=== PATIENT | male | born 1995 | race Two or more races ===

== ENCOUNTER 2018-06-05 12:29 | Emergency (ER) | payer OTHER ==
[2018-06-05 12:34] VITALS: TEMP 98.8; BMI 34.9
[2018-06-05] MEDS ORDERED: SODIUM CHLORIDE 1,000 ML IV STA (13:26)
[2018-06-05] MEDS ORDERED: KETOROLAC TROMETHAMINE 30 MG/1 ML VIAL IVPUSH ONE (13:26)
[2018-06-05] MEDS ORDERED: METOCLOPRAMIDE HCL INJECTION 10 MG/2 ML VIAL IVPB ONE (13:26)
[2018-06-05] MEDS ORDERED: KETOROLAC TROMETHAMINE 30 MG/1 ML VIAL ONE (13:35)
[2018-06-05] MEDS ORDERED: METOCLOPRAMIDE HCL INJECTION 10 MG/2 ML VIAL ONE (13:35)
--- NOTE | 2018-06-05 13:43 | PDOC ---
History of Present Illness - General Chief Complaint: Headache Stated Complaint: HEADACKE/BLURRY VISSION/DISSY Time Seen by Provider: 06/05/18 12:47 History Source: Patient Exam Limitations: No Limitations - History of Present Illness Initial Comments: 06/05/18 13:06 22-year-old male presents to the emergency for evaluation of headache since yesterday associated with mild lightheadedness causing him pain behind his right eye and intermittent blurry vision with severe pain which he describes as a pressure throbbing sensation radiating to his right temporal and right occipital region. Patient denies history of migraines recent illness or recent travel, recent head injury, fever, chills or neck pain. Patient states intermittent nausea since onset continues to eat and drink without difficulty. Timing/Duration: reports: other Associated Symptoms: reports: nausea/vomiting, vision changes Past History - Travel Traveled outside of the country in the last 30 days: No - Past Medical History Allergies/Adverse Reactions: Allergies Allergy/AdvReac Type Severity Reaction Status Date / Time No Known Allergies Allergy Verified 06/05/18 12:34 Home Medications: Ambulatory Orders NK [No Known Home Medication] 06/05/18 COPD: No - Suicide/Smoking/Psychosocial Hx Smoking History: Never smoked Information on smoking cessation initiated: No Patient Lives Alone: No Lives with/in: spouse/SO Review of Systems - Review of Systems Able to Perform ROS?: No Constitutional: No: Symptoms Reported HEENTM: Yes: Eye Pain, Blurred Vision Respiratory: No: Symptoms reported Cardiac (ROS): No: Symptoms Reported ABD/GI: Yes: Nausea. No: Abdominal cramping : No: Symptoms Reported Musculoskeletal: No: Symptoms Reported Integumentary: No: Symptoms Reported Neurological: Yes: Headache, Dizziness Endocrine: No: Symptoms Reported Hematologic/Lymphatic: No: Symptoms Reported *Physical Exam - Vital Signs Last Vital Signs Temp Pulse Resp BP Pulse Ox 98.8 F 63 18 112/60 97 06/05/18 12:31 06/05/18 12:31 06/05/18 12:31 06/05/18 12:31 06/05/18 12:31 - Physical Exam General Appearance: Yes: Nourished, Appropriately Dressed. No: Apparent Distress HEENT: positive: EOMI, EMY (snellen test 20/20 OU), TMs Normal, Pharynx Normal. negative: Pale Conjunctivae Neck: positive: Supple. negative: Tender, Decreased range of motion Respiratory/Chest: positive: Lungs Clear, Normal Breath Sounds. negative: Chest Tender, Respiratory Distress, Accessory Muscle Use Cardiovascular: positive: Regular Rhythm, Regular Rate. negative: Murmur Gastrointestinal/Abdominal: positive: Soft. negative: Tenderness Extremity: positive: Normal Capillary Refill. negative: Pedal Edema Integumentary: positive: Normal Color, Warm, Moist ED Treatment Course - LABORATORY CBC & Chemistry Diagram: 06/05/18 14:05 06/05/18 14:05 - RADIOLOGY Radiology Studies Ordered: Category Date Time Status HEAD CT WITHOUT CONTRAST [CT] Stat CT Scan 06/05/18 13:26 Ordered Medical Decision Making - Medical Decision Making 06/05/18 13:09 Issue with headache since yesterday. Patient with throbbing pressure to the right side of his habits leading to the retro-orbital region. Patient denies visual changes but states with severe throbbing pain comes mild blurred vision and describes lightheadedness intermittently patient examined no neural focal deficits. Patient ordered for labs, head CT Reglan Toradol and IV fluids. Patient currently eating upon my arrival. Patient with snellen test 20/20 OU 06/05/18 15:54 Laboratory Tests 06/05/18 06/05/18 14:05 14:05 WBC 8.5 Hgb 14.1 Hct 41.4 Neutrophils % 75.5 Sodium 141 Potassium 4.3 Chloride 104 Carbon Dioxide 32 Anion Gap 5 L BUN 15 Creatinine 0.9 Random Glucose 71 L Calcium 8.8 Magnesium 2.2 AST 27 ALT 40 Alkaline Phosphatase 97 Total Protein 7.6 Albumin 3.9 Pt states feeling better. Pt has no complaints presently. Ct head neg. Pt drank gingerale and had cinnabun after glucose was discussed with him. Discharge home *DC/Admit/Observation/Transfer Diagnosis at time of Disposition: Headache - Discharge Dispostion Disposition: HOME Condition at time of disposition: Improved - Referrals Referrals: Esme Funes [Primary Care Provider] - - Patient Instructions Printed Discharge Instructions: DI for Headache Additional Instructions: Please take Motrin as needed for pain. Please follow up with the eye doctor as scheduled. Return to the ED if symptoms worsen. - Post Discharge Activity
[2018-06-05 14:17] LABS: BASO % 0.6 % (0-2.0); EOS % 0.5 % (0-4.5); HEMATOCRIT 41.4 % (35.4-49); HEMOGLOBIN 14.1 GM/dL (11.7-16.9); LYMPH % 18.6 % (8-40); MCH 28.8 pg (25.7-33.7); MEAN CELL VOLUME 84.9 fl (80-96); MEAN PLT VOLUME 9.2 fl (7.5-11.1); MONO % 4.8 % (3.8-10.2); NEUT % 75.5 % (42.8-82.8); PLATELET COUNT 267 K/MM3 (134-434); RBC 4.88 M/mm3 (4.00-5.60); RDW 13.2 % (11.9-15.9); WHITE BLOOD COUNT 8.5 K/mm3 (4.0-10.0)
[2018-06-05 14:44] LABS: ALBUMIN 3.9 g/dl (3.4-5.0); ANION GAP 5 MMOL/L (8-16); BLOOD UREA NITROGEN 15 mg/dL (7-18); CALCIUM 8.8 mg/dL (8.5-10.1); CHLORIDE 104 mmol/L (98-107); CO2 32 mmol/L (21-32); CREATININE 0.9 mg/dL (0.7-1.3); GLUCOSE,RANDOM 71 mg/dL (74-106); MAGNESIUM 2.2 mg/dL (1.8-2.4); POTASSIUM 4.3 mmol/L (3.5-5.1); SGOT/AST 27 U/L (15-37); SGPT/ALT 40 U/L (12-78); SODIUM 141 mmol/L (136-145); TOT PROT 7.6 g/dl (6.4-8.2)
[2018-06-05 14:50] LABS: ALK PHOS 97 U/L (45-117); BILIRUBIN,TOTAL 0.3 mg/dL (0.2-1.0)
[2018-06-05 16:04] VITALS: BP 110/70; PULSE 73
== END 2018-06-05 16:01 | disposition home or self-care (01) ==
LOC: JER 12:29
PROC: 3E0333Z Introduction of Anti-inflammatory into Peripheral Vein, Percutaneous Approach (ICD-10-PCS; principal; 2018-06-05)
PROC: 3E033GC Introduction of Other Therapeutic Substance into Peripheral Vein, Percutaneous Approach (ICD-10-PCS; 2018-06-05)
PROC: 3E0337Z Introduction of Electrolytic and Water Balance Substance into Peripheral Vein, Percutaneous Approach (ICD-10-PCS; 2018-06-05)
DX: R51 Headache (principal)
CPT/HCPCS: 36415; 70450-TC; 80053; 83735; 85025; 96361; 96374; 96375; 99282-25; J7030